=== PATIENT | female | born 1970 | race Caucasian/White ===

== ENCOUNTER 2020-12-29 07:39 | Outpatient (REF) | payer BC, SELFPAY ==
[2020-12-29 08:50] LABS: Alanine Aminotransferase 24 U/L (0-31); Albumin Level 4.2 g/dL (3.5-5.0); Alkaline Phosphatase 92 U/L (39-117); Anion Gap 13 (12-20); Aspartate Amino Transferase 20 U/L (5-31); Bilirubin Total 0.7 mg/dL (0.0-1.0); Blood Urea Nitrogen 10 mg/dL (9-16); Calcium 9.5 mg/dL (8.4-10.2); Carbon Dioxide 25 mmol/L (22-29); Chloride 104 mmol/L (96-108); Cholesterol 151 mg/dL; Estimated Glomerular Filt Rate 59; Glucose Random 82 mg/dL (60-115); HDL Cholesterol 42 mg/dL; LDL Cholesterol Calculated 97 mg/dl; Potassium 4.6 mmol/L (3.3-5.1); Sodium 137 mmol/L (135-145); Total Protein 7.6 g/dL (6.5-8.0); Triglycerides 61 mg/dL
[2020-12-29 09:14] LABS: Free T4 (Free Thyroxine) 1.21 ng/dL (0.71-1.85); Thyroid Stimulating Hormone 0.14 uIU/mL (0.32-4.0)
== END 2020-12-29 07:40 | disposition home or self-care (01) ==
LOC: HO.LAB 07:39
PROVIDERS: PCP Internal Medicine; Visit Provider Internal Medicine
DX: Z00.00 Encounter for general adult medical examination without abnormal findings (principal); E03.9 Hypothyroidism, unspecified
CPT/HCPCS: 36415; 80053; 80061; 84439; 84443

== ENCOUNTER 2024-01-07 07:42 | Outpatient (REF) | payer BC, SELFPAY ==
[2024-01-07 07:52] LABS: MANUAL DIFF FLAG NO
[2024-01-07 08:06] LABS: Basophils Absolute Auto 0.1 X10*3/uL (0.0-0.2); Basophils Percent Auto 0.8 % (0-2); Eosinophils Absolute Auto 0.4 X10*3/uL (0.0-0.4); Eosinophils Percent Auto 5.9 % (0-4); Hematocrit 41.6 % (37.0-47.0); Hemoglobin 14.1 g/dl (12.0-16.0); Imm Gran Abs Auto 0.01 X10*3/uL (0.00-0.03); Imm Gran Pct Auto 0.2 % (0.0-0.4); Lymphocytes Absolute Auto 2.3 X10*3/uL (1.2-4.9); Lymphocytes Percent Auto 38.3 % (20-40); Mean Corpuscular HGB Conc 33.9 g/dl (31.0-35.0); Mean Corpuscular Hemoglobin 30.3 pg (27.0-33.0); Mean Corpuscular Volume 89.3 fL (80.0-98.0); Mean Platelet Volume 9.4 fL (9.4-12.3); Monocytes Absolute Auto 0.5 X10*3/uL (0.1-1.2); Monocytes Percent Auto 7.9 % (2-11); Neutrophils Absolute Auto 2.8 x10*3/uL (2.0-8.3); Neutrophils Percent Auto 46.9 % (45-73); Platelet Count 207 X10*3/uL (160-400); Red Blood Count 4.66 X10*6/uL (4.20-5.50); Red Cell Distribution Width 12.2 % (11.0-16.0)
[2024-01-07 08:50] LABS: Alanine Aminotransferase 27 U/L (0-31); Albumin Level 3.8 g/dL (3.5-5.0); Alkaline Phosphatase 126 U/L (39-117); Anion Gap 11 (12-20); Aspartate Amino Transferase 23 U/L (5-31); Bilirubin Total 0.4 mg/dL (0.0-1.0); Blood Urea Nitrogen 15 mg/dL (9-16); Calcium 9.2 mg/dL (8.4-10.2); Carbon Dioxide 23 mmol/L (22-29); Chloride 110 mmol/L (96-108); Estimated Glomerular Filt Rate > 60; Glucose Random 99 mg/dL (60-115); HDL Cholesterol 47 mg/dL (>40); Potassium 4.2 mmol/L (3.3-5.1); Sodium 140 mmol/L (135-145); Total Protein 7.1 g/dL (6.5-8.0)
[2024-01-07 09:06] LABS: Free T4 (Free Thyroxine) 1.22 ng/dL (0.71-1.85); Thyroid Stimulating Hormone < 0.01 uIU/mL (0.32-4.0)
== END 2024-01-07 07:43 | disposition home or self-care (01) ==
LOC: HO.LAB 07:42
PROVIDERS: PCP Internal Medicine; Visit Provider Physician Assistant
DX: E78.00 Pure hypercholesterolemia, unspecified (principal); E03.9 Hypothyroidism, unspecified
CPT/HCPCS: 36415; 80053; 83718; 84439; 84443; 85025

== ENCOUNTER 2024-05-24 11:00 | Outpatient (REF) | payer BC, SELFPAY ==
--- NOTE | ~2024-05-24 | XR_ITS ---
EXAMINATION: XR CHEST CLINICAL INFORMATION: Acute bronchitis COMPARISON: 07/24/2011 TECHNIQUE: 2 views of the chest were obtained. FINDINGS: No significant abnormality is noted involving the heart, lungs, mediastinum, bony thorax or soft tissues. XR/XR chest 2V IMPRESSION: Unremarkable examination. Electronically signed by: Kenney Goldstein MD 05/24/2024 03:25 PM EDT
== END 2024-05-24 11:01 | disposition home or self-care (01) ==
LOC: HO.XRAY 11:00
PROVIDERS: PCP Internal Medicine; Visit Provider Physician Assistant
DX: J20.8 Acute bronchitis due to other specified organisms (principal)
CPT/HCPCS: 71046

== ENCOUNTER 2025-04-04 11:34 | Outpatient (REF) | payer BC, SELFPAY ==
[2025-04-04 13:10] LABS: MANUAL DIFF FLAG NO
[2025-04-04 13:14] LABS: Hematocrit 41.7 % (37.0-47.0); Hemoglobin 14.2 g/dl (12.0-16.0); Imm Gran Abs Auto 0.05 X10*3/uL (0.00-0.03); Imm Gran Pct Auto 0.4 % (0.0-0.4); Lymphocytes Absolute Auto 1.1 X10*3/uL (1.2-4.9); Mean Corpuscular HGB Conc 34.1 g/dl (31.0-35.0); Mean Corpuscular Hemoglobin 30.1 pg (27.0-33.0); Mean Corpuscular Volume 88.5 fL (80.0-98.0); NRBC Abs Auto 0.000 X10*3/uL (0.0-0.012); NRBC Pct Auto 0.0 /100WBC (0.0-0.2); Platelet Count 201 X10*3/uL (160-400); Red Blood Count 4.71 X10*6/uL (4.20-5.50); White Blood Count 11.9 X10*3/uL (4.8-10.8)
[2025-04-04 14:36] LABS: Free T4 (Free Thyroxine) 1.44 ng/dL (0.71-1.85)
[2025-04-05 07:18] LABS: Lyme Abs Screen <0.90 index
[2025-04-05 07:29] LABS: Immunoglobulin A 313 mg/dL (47-310)
== END 2025-04-04 11:35 | disposition home or self-care (01) ==
LOC: HO.MANLDS 11:34
PROVIDERS: Visit Provider Physician Assistant
DX: L28.2 Other prurigo (principal)
CPT/HCPCS: 36415; 82784; 82785; 84439; 84443; 85025; 85652; 86140; 86617; 86618; 86666; 86757; 87070; 87205

== ENCOUNTER 2025-05-24 10:45 | Outpatient (REF) | payer BC, SELFPAY ==
[2025-05-24 13:49] LABS: Appearance Urine Clear; Glucose Urine UA Negative (Negative); PH 6.0 (5.0-9.0); Specific Gravity - Urine 1.015 (1.005-1.025)
== END 2025-05-24 10:46 | disposition home or self-care (01) ==
LOC: HO.MANLNP 10:45
PROVIDERS: Visit Provider Physician Assistant
DX: N39.0 Urinary tract infection, site not specified (principal)
CPT/HCPCS: 81003

== ENCOUNTER 2025-05-25 10:32 | Outpatient (REF) | payer BC, SELFPAY ==
[2025-05-25 10:53] LABS: MANUAL DIFF FLAG NO
[2025-05-25 12:01] LABS: Hematocrit 44.9 % (37.0-47.0); Hemoglobin 15.2 g/dl (12.0-16.0); Imm Gran Abs Auto 0.05 X10*3/uL (0.00-0.03); Imm Gran Pct Auto 0.8 % (0.0-0.4); Lymphocytes Absolute Auto 2.2 X10*3/uL (1.2-4.9); Mean Corpuscular HGB Conc 33.9 g/dl (31.0-35.0); Mean Corpuscular Hemoglobin 29.9 pg (27.0-33.0); Mean Corpuscular Volume 88.2 fL (80.0-98.0); NRBC Abs Auto 0.000 X10*3/uL (0.0-0.012); NRBC Pct Auto 0.0 /100WBC (0.0-0.2); Platelet Count 198 X10*3/uL (160-400); Red Blood Count 5.09 X10*6/uL (4.20-5.50); White Blood Count 6.4 X10*3/uL (4.8-10.8)
[2025-05-25 12:12] LABS: Appearance Urine Clear; Glucose Urine UA Negative (Negative); PH 5.5 (5.0-9.0); Specific Gravity - Urine 1.020 (1.005-1.025); UMIC TRIGGER UA YES
[2025-05-25 12:22] LABS: Iron 95 mcg/dL (30-160); Percent Iron Saturation 34 % (15-50); Total Iron Binding Capacity 283 mcg/dL (228-428); Unsaturated Iron Binding 188 ug/dL
[2025-05-25 12:47] LABS: Ferritin 151 ng/mL (10-250); Free T4 (Free Thyroxine) 1.19 ng/dL (0.71-1.85); Thyroid Stimulating Hormone 0.02 uIU/mL (0.32-4.0)
[2025-05-25 12:52] LABS: Folate 12.0 ng/mL (> or = 4.0); Vitamin B12 1210 pg/mL (200-900)
== END 2025-05-25 10:33 | disposition home or self-care (01) ==
LOC: HO.LAB 10:32
PROVIDERS: PCP Internal Medicine; Visit Provider Physician Assistant
DX: R53.83 Other fatigue (principal); E03.9 Hypothyroidism, unspecified; N39.0 Urinary tract infection, site not specified; Z13.1 Encounter for screening for diabetes mellitus; Z13.0 Encounter for screening for diseases of the blood and blood-forming organs and certain disorders involving the immune mechanism; Z13.29 Encounter for screening for other suspected endocrine disorder
CPT/HCPCS: 36415; 81001; 82306; 82607; 82728; 82746; 83036; 83540; 84439; 84443; 84445; 84481; 85025; 86376

== ENCOUNTER 2025-05-30 11:23 | Outpatient (REF) | payer BC, SELFPAY ==
--- NOTE | ~2025-05-30 | XR_ITS ---
EXAMINATION: XR CHEST CLINICAL INFORMATION: ATYPICAL CHEST PAIN, Other chest pain COMPARISON: 05/24/2024. TECHNIQUE: 2 views of the chest were obtained. FINDINGS: The cardiac, hilar, and mediastinal contours are normal. The lungs are clear bilaterally. There is no pneumothorax or pleural effusion. There is no focal osseous or soft tissue abnormality. XR/XR chest 2V IMPRESSION: Normal chest. Electronically signed by: Jake Esquivel MD 05/30/2025 12:05 PM EDT
== END 2025-05-30 11:24 | disposition home or self-care (01) ==
LOC: HO.XRAY 11:23
PROVIDERS: PCP Internal Medicine; Visit Provider Physician Assistant
DX: R07.89 Other chest pain (principal)
CPT/HCPCS: 71046

== ENCOUNTER → 2025-05-30 11:27 | Outpatient (BNV) | payer BC, SELFPAY | PROVIDERS: PCP Internal Medicine; Visit Provider Radiology Diagnostic Radiology | DX: R07.89 Other chest pain (principal) | CPT/HCPCS: 71046 ==

== ENCOUNTER → 2025-06-28 08:02 | Outpatient (REF) | payer BC, SELFPAY ==
--- NOTE | 2025-06-28 08:04 | CA_ITS ---
Transthoracic Echocardiogram Patient (Last, First, Middle): Marleen Hardy F Gender: F Date of : 1970 Age: 55 Procedure Date: 06/28/2025 Procedure Type: Transthoracic Echocardiogram Location: OP Height: 162.56 cm Weight: 84.82 kg BSA: 1.90 m2 Heart Rate: 79 bpm Porcelain Turner: BRUNO Referring MD: Kathy HOYT Mucking Machine Operator: Rafael Chaudhary MD Symptoms: CHEST PAIN R07.89 Study Quality: Adequate w contrast ECG Rhythm: Sinus Conclusions: - 1. Normal LV ejection fraction of 60-65% with grade 1 diastolic dysfunction 2. Calcific mitral valve changes noted with normal cardiac valvular Dopplers 3. Mildly dilated ascending aorta 3.7 cm 4. No gross pericardial effusion Findings Procedure Information Contrast agent, definity, is being given per protocol without apparent complications. Left Ventricle Normal left ventricular size, thickness, and systolic function. The visually estimated ejection fraction is between 60-65%. Spectral Doppler is indicative of an impaired relaxation filling pattern. E/E prime ratio is <8, consistent with normal filling pressures. Evidence suggests grade I (mild) diastolic dysfunction. Right Ventricle Normal right ventricular cavity size and systolic function. Atria The left atrium is normal in size. There is no evidence of interatrial shunt. The right atrium is normal in size. Aortic Valve Normal aortic valve structure and function. There is no aortic valve stenosis. There is no aortic valve regurgitation. Mitral Valve There is mild anterior mitral leaflet thickening. There is mild mitral annular calcification. There is trace mitral valve regurgitation. There is no mitral valve stenosis. Pulmonic Valve The pulmonic valve is likely normal. Tricuspid Valve Normal tricuspid valve structure. There is trace tricuspid valve regurgitation. The right ventricular systolic pressure is normal. The right ventricular systolic pressure is 13 mmHg. Normal right atrial pressure. There is no evidence of pulmonary hypertension. Great Vessels The pulmonary artery was not well visualized. There is mild dilatation of the ascending aorta measuring 3.70 cm. Venous The inferior vena cava is normal in size and collapses greater than 50% with inspiration. Pericardium/Pleural There is no evidence of pericardial effusion. Prior Study Comparison No prior study available for comparison. Measurements 2D Linear Measurements IVSd: 1.07 0.6-0.9/0.6-1.0 cm LVIDd: 4.38 3.9-5.3/4.2-5.9 cm LVIDd Index: 2.31 2.4-3.2/2.2-3.1 cm/m2 LVIDs: 3.06 2.0-3.6 cm LVPWd: 0.94 0.7-1.1 cm LA Diam: 3.40 2.7-3.8/3.0-4.0 cm LAIDs Index: 1.79 1.5-2.3 cm/m2 LV Mass: 183.33 67-162/88-224 g LV Mass Index: 96.49 43-95/49-115 g/m2 LVOT Diam: 2.00 3.0+(-)1.3 cm 2D Systolic Function EF 4C: 60.70 >55% EF 2C: 61.90 >55% EF BiP: 61.60 >55% Mitral Valve MV Pk E: 0.51 MV PK A: 0.75 MV Decel Time: 199.00 E/A: 0.70 E'Lateral: 6.42 E'Medial: 5.44 E/E' Med: 9.40 E/E' Lat: 8.00 PHT: 58.00 MVA PHT: 3.79 Decel Stanley: 2.59 Aortic Valve AoV Pk Chente: 1.01 AoV Pk Grad: 4.00 LAILA: 3.29 LVOT LVOT Pk Chente: 1.00 LVOT Mn Chente: 0.75 LVOT VTI: 0.20 LVOT Pk Grad: 4.00 LVOT Mn Grad: 3.00 LVOT Diam: 2.00 LVOT Area: 3.14 Diastolic Function MV Pk E: 0.51 MV Pk A: 0.75 E/A: 0.70 E'Medial: 5.44 E/E' Med: 9.40 E' Laterial: 6.42 E/E' Lat: 8.00 Right Ventricle TAPSE (mm): 15.20 TVS' Chente: 9.25 Tricuspid Valve TR Pk Chente: 1.62 TR Pk Grad: 10.00 RA Press: 3.00 RVSP: 13.00 Great Vessels Aorta Sinus of Valsalva: 3.50 2.0-3.5 cm Ao Asc: 3.70 2.1-3.4 cm Pulmonary Veins Pulm Vein S/D 1.50 Pulmonary Valve PV Pk Chente: 0.76 Peak PV Grad: 2.00 Updated in Other Vendor System with Status of Final Rafael Chaudhary MD electronically signed on 06/28/2025 6:39:21 PM with status of Final
== END ==
LOC: HO.CARD 08:02
PROVIDERS: PCP Internal Medicine; Visit Provider Physician Assistant
DX: R07.89 Other chest pain (principal)
CPT/HCPCS: 93306; Q9957

== ENCOUNTER → 2025-06-28 08:04 | Outpatient (BNV) | payer BC, SELFPAY | PROVIDERS: PCP Internal Medicine; Visit Provider Internal Medicine Cardiovascular Disease | DX: I34.81 Nonrheumatic mitral (valve) annulus calcification (principal); I77.810 Thoracic aortic ectasia | CPT/HCPCS: 93306 ==

== ENCOUNTER 2025-07-24 07:27 | Outpatient (REF) | payer BC, SELFPAY ==
--- OUTSIDE RECORDS SUMMARY | 2025-07-24 07:31 | XMS_ITS | Data Portability ---
Author Organization [facility], Telehealth Patient Home Address [address] [place] [address] Assessment No assessment recorded. Plan of Treatment Reminders Order Date Submit Date Provider Last Modified By Organization Details Last Modified Time Details Appointments None recorded. Lab lipid panel, serum 2024 [facility], [address] [place] [address], [id number], 5 10:52:07 CMP, serum or plasma 2024 [facility], [address] [place] [address], [id number], 5 10:52:07 lipoprotei n (A), serum 2024 [facility], [address] [place] [address], [address], 5 10:52:07 ESR (erythrocy te sedimentat ion rate), blood 2024 025 [facility], [address] [place] [address], [address], 5 10:52:07 C-reactive protein, quantitati ve, serum or plasma 2024 025 [facility], [address] [place] [address], [address], 10:52:07 urinalysis complete, reflex culture 2024 [facility], [address] [place] [address], [id number], 12:19:25 urinalysis , dipstick 2024 [facility], [address], [address], [place], [address], 11:24:29 TSH + free T4, serum 2024 [facility], [address] [place] [address], [address], 11:32:31 T3, free, serum or plasma 2024 [facility], [address] [place] [address], [address], 11:32:31 thyroid peroxidase (tpo) Ab, serum 2024 [facility], [address] [place] [address], [address], 12:12:52 tsi (thyroid-s timulating immunoglob ulin), serum 2024 [facility], [address] [place] [address], [address], 11:32:31 vitamin D, 25-hydroxy , total, serum 2024 [facility], [address] [place] [address], [address], 11:32:31 vitamin B12 + folate, serum or blood 2024 [facility], [address] [place] [address], [address], 11:32:31 iron + TIBC + ferritin, serum 2024 [facility], [address] [place] [address], [address], 11:32:31 CBC w/ auto diff 2024 [facility], [address] [place] [address], [address], 11:32:31 hemoglobin A1c, QN, blood 2024 [facility], [address] [place] [address], [address], 11:32:31 ESR (erythrocy te sedimentat ion rate), blood 2024 [facility], [address] [place] [address], [address], 5 11:26:40 C-reactive protein, quantitati ve, serum or plasma 2024 [facility], [address] [place] [address], [address], 5 11:26:40 iga, quantitati ve, serum 2024 [facility], [address] [place] [address], [address], 5 11:26:40 lyme disease igg+igm, serum, reflex western blot 2024 [facility], [address] [place] [address], [address], 5 16:51:40 anaplasma phagocytop hilum + ehrlichia chaffeensi s DNA panel, blood 2024 [facility], [address] [place] [address], [address], 5 11:26:40 rickettsia rickettsii igg+igm Ab, serum 2024 [facility], [address] [place] [address], [address], 5 11:26:40 CBC w/ auto diff 2024 [facility], [address] [place] [address], [address], 5 13:01:10 IgE, quantitati ve, serum 2024 [facility], [address] [place] [address], [address], 5 11:26:03 TSH + free T4, serum 2024 [facility], [address] [place] [address], [address], 5 13:01:10 culture, skin - L busch 2024 [facility], [address] [place] [address], [address], 11:32:50 Referral None recorded. Procedures None recorded. Surgeries None recorded. Imaging None recorded. Medication Orders Zepbound 2.5 mg/0.5 mL subcutaneo us pen injector 2024 [id number], [address] [place], [address], 10:47:51 butalbital -acetamino phen-caffe ine 50 mg-325 mg-40 mg tablet 2024 [facility], [address] [place], [address], 05:02:10 amoxicilli n 875 mg tablet 2024 025 [facility], [address] [place], [address], 05:01:22 prednisone 10 mg tablet 2024 025 [id number], [address] [place], [address], 11:09:17 Bactrim DS 800 mg-160 mg tablet 2024 025 [facility], [address] [place], [address], 05:01:42 prednisone 10 mg tablet 2024 025 [facility], [address] [place], [address], 11:09:14 cephalexin 500 mg capsule 2024 025 [facility], [address] [place], [address], 13:09:53 Patient TargetsNo targets recorded. Patient InstructionsNo instructions recorded. Reason for Referral None Reported. Results Created Date Observation Date Name Description Value Unit Range Abnormal Flag Note LastModifiedBy Organization Detail LastModifiedTime 05/24/2005/24/2025 urina lysis , dipst ick Leukocytes Small Not Available [facility] [address] [place] [address] [address], [place], [address], 05/24/2025 11:21:30 05/24/2005/24/2025 urina lysis , dipst ick Nitrite positi ve Not Available [facility] [address], [place], [address], 05/24/2025 11:21:30 05/24/2005/24/2025 urina lysis , dipst ick Urobilinogen 8 Not Available [facility] [address], [place], [address], 05/24/2025 11:21:30 05/24/2005/24/2025 urina lysis , dipst ick Protein Negati ve Not Available [facility] [address], [place], [address], 05/24/2025 11:21:30 05/24/2005/24/2025 urina lysis , dipst ick pH 6.0 Not Available [address], [place], [address], 05/24/2025 11:21:30 05/24/2005/24/2025 urina lysis , dipst ick Blood Negati ve Not Available [address], [place], [address], 05/24/2025 11:21:30 05/24/2005/24/2025 urina lysis , dipst ick Specific Falcon 1.020 Not Available [address], [place], [address], 05/24/2025 11:21:30 05/24/2005/24/2025 urina lysis , dipst ick Ketone Small Not Available [address], [place], [address], 05/24/2025 11:21:30 05/24/2005/24/2025 urina lysis , dipst ick Bilirubin Negati ve Not Available [facility] [address], [place], [address], 05/24/2025 11:21:30 05/24/2005/24/2025 urina lysis , dipst ick Glucose Negati ve Not Available [facility] [address], [place], [address], 05/24/2025 11:21:30 05/24/2005/24/2025 urina lysis , dipst ick Appearance Clear Not Available [facility] [address], [place], [address], 05/24/2025 11:21:30 05/24/2005/24/2025 urina lysis , dipst ick Color Yellow Not Available [facility] [address], [place], [address], 05/24/2025 11:21:30 05/30/2005/30/2025 XR, chest , 2 view No observ ation record ed. [email or web address] [facility] (Medical Records) [address] [place], [address], 05/30/2025 14:45:08 06/28/2006/28/2025 US, echoc ardio gram No observ ation record ed. [email or web address] [facility] (Medical Records) [address] [place], [address], 06/30/2025 13:45:07 Result Notes None recorded. Problems Name Problem SNOMED Code Status Onset Date Resolution Date Notes Provider Name and Address Organization Details Recorded Time Migraine 39638839 Active 2017 Not Available [facility] 0 11:54:14 Hypothyroi dism 52047042 Active 2017 EVELINA LEDESMA [address] 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 Jorge Waldrop, DO [address] [place] [address], [address], [facility] 1 15:20:24 Hypertensi ve disorder 31617456 Active 2021 Jorge Waldrop, DO [address] [place] [address], [address], [facility] 2 16:27:14 Allergic rhinitis 21488529 Active 2021 Jorge Waldrop, DO [address] [place] [address], [address], [facility] 2 16:31:22 Hyperlipid emia 50731432 Active 2022 EVELINA LEDESMA [address] [place] [address], [address], [facility] 3 16:26:16 Cough 98159559 Active 2022 EVELINA LEDESMA [address] [place] [address], [address], [facility] 3 13:51:36 Pain in throat 771490523 Active 2022 EVELINA LEDESMA [address] [place] [address], [address], [facility] 3 13:51:48 Acute bronchitis with bronchospa sm 59985493 Active 2022 EVELINA LEDESMA [address] [place] [address], [address], [facility] 3 13:51:56 Acute bronchitis 89027689 Active 2023 EVELINA LEDESMA [address] [place] [address], [address], [place] [facility] 4 15:31:31 Cellulitis 404601221 Active 2023 EVELINA LEDESMA [address] [place] [address], [address], [facility] 4 15:18:20 Anxiety 13110614 Active 2024 EVELINA LEDESMA [address] [place] [address], [address], [facility] 5 10:30:45 Disturbanc e of consciousn ess 6441374 Active 2024 EVELINA LEDESMA [address] [place] [address], [address], [facility] 5 10:38:03 Sleep apnea 11151215 Active 2024 EVELINA LEDESMA [address] [place] [address], [address], [facility] 5 10:41:00 Obstructiv e sleep apnea syndrome 85835923 Active 2024 EVELINA LEDESMA [address] [place] [address], [address], [facility] 5 10:10:08 Fatigue 27412201 Active 2024 EVELINA LEDESMA [address] [place] [address], [address], [facility] 5 10:16:10 Acute contact dermatitis 881196829 Active 2024 EVELINA LEDESMA [address] [place] [address], [address], [facility] 5 11:05:29 Eruption 114938958 Active 2024 EVELINA LEDESMA [address] [place] [address], [address], [facility] 5 14:52:44 Pruritic rash 46880286 Active 2024 EVELINA LEDESMA [address] [place] [address], [address], [facility] 5 11:29:56 Arthropod bite wound 931203312 Active 2024 EVELINA LEDESMA [address] [place], [address], [facility] 5 11:21:53 Acute urinary tract infection 140386602 Active 2024 EVELINA LEDESMA [address] [place], [address], [facility] 5 11:08:59 Atypical chest pain 972211853 Active 2024 EVELINA LEDESMA [address] [place] [address], [address], [facility] 5 10:13:02 Mixed hyperlipid emia 219150981 Active 2024 EVELINA LEDESMA [address] [place] [address], [address], [facility] 5 10:44:51 Problem Notes None recorded. Procedures Surgical History Date Name Laterality Status Provider Name and Address Organization Details Recorded Time 9 Most Recent Mammogram completed [facility] 04/19/2019 08:37:54 8 Date of Last Pap Smear completed [facility] 04/19/2019 08:38:36 Imaging Results None recorded. Procedure Notes None recorded. Medical Equipment None Reported. Allergies Allergen ID Allergen Name Allergen Category Reaction Reaction Severity Criticality Documentation Date Start Date Code Code System Note Provider Name and Address Organization Details Recorded Time 4288 Product containin g beta adrenergi c receptor antagonis t (product) medicatio n Not available Not available Not available 09/11/2020 37154 009 SNOMED Jorge Waldrop DO [address] [place], [address], [facility] 2 15:41:29 9374 Bactrim medicatio n Not available Not available Not available 05/24/2025 33688 9 RxNorm EVELINA LEDESMA [address] [place] [address], [address], [facility] 11:08:31 Medications Name Sig Start Date Stop Date Status Note LastModified by Organization Details LastModified Time fluoxetine 40 mg capsule TAKE 1 CAPSULE BY MOUTH EVERY DAY 10/05 completed Not Available Not Available Not Available amoxicillin 500 mg capsule TAKE 1 CAPSULE BY MOUTH 3 TIMES A DAY UNTIL FINISHED 01/21 completed Not Available Not Available Not Available nystatin 100,000 unit/mL oral suspension Take 5 mL 4 times a day by oral route for 7 days. 10/22 completed Not Available Not Available Not Available prednisone 10 mg tablet TAKE 4 TABS X 2 DAYS, THEN 3 TABS X 2 DAYS, 2 TABS X 2 DAYS, 1 TAB X 2 DAYS 05/24 completed Not Available Not Available Not Available doxycycline hyclate 100 mg capsule 09/12 completed Not Available Not Available Not Available clindamycin HCl 300 mg capsule TAKE 1 CAPSULE BY MOUTH 4 TIMES A DAY UNTIL FINISHED 01/21 completed Not Available Not Available Not Available atorvastati n 10 mg tablet Take 1 tablet every day by oral route for 90 days. 2024 active Not Available Not Available Not Avai lable azithromyci n 250 mg tablet TAKE 2 TABLETS BY MOUTH TODAY, THEN TAKE 1 TABLET DAILY FOR 4 DAYS DIRECTED 10/05 completed Not Available Not Available Not Available benzonatate 200 mg capsule TAKE 1 CAPSULE BY MOUTH THREE TIMES A DAY NEEDED FOR 14 DAYS 10/05 completed Not Available Not Available Not Available sumatriptan 100 mg tablet 1 TABLET BY MOUTH DAILY:MAY REPEAT DOSE ONCE IN 2 HOURS 05/09 completed Not Available Not Available Not Available prednisone 20 mg tablet take 3 tabs x 2 daystake 2 tabs x 2 daystake 1 tab x 2 days 10/11 completed Not Available Not Available Not Available propranolol ER 60 mg capsule,24 hr,extended release TAKE 1 CAPSULE BY MOUTH EVERY DAY 2024 active Not Available Not Available Not Avai lable acetaminoph en 300 mg-codeine 30 mg tablet 07/02 completed Not Available Not Available Not Available peg-electro lyte solution 420 gram oral solution 01/21 completed Not Available Not Available Not Available butalbital- acetaminoph en-caffeine 50 mg-325 mg-40 mg tablet Take 1 tablet 3 times a day by oral route as needed for 7 days. 07/24 completed Not Available Not Available Not Available levothyroxi ne 100 mcg tablet TAKE 1 TABLET BY MOUTH EVERY DAY 10/11 completed Not Available Not Available Not Available amoxicillin 875 mg tablet Take 1 tablet every 12 hours by oral route for 7 days. 06/07 completed Not Available Not Available Not Available magnesium oxide 400 mg (241.3 mg magnesium) tablet TAKE 1 TABLET BY MOUTH EVERY DAY active Not Available Not Available No t Available amlodipine 10 mg tablet TAKE 1 TABLET BY MOUTH EVERY DAY 10/22 completed Not Available Not Available Not Available cephalexin 500 mg capsule TAKE 1 CAPSULE BY MOUTH EVERY 6 HOURS FOR 10 DAYS 04/05 completed Not Available Not Available Not Available fluoxetine 20 mg tablet 07/02 completed Not Available Not Available Not Available levothyroxi ne 125 mcg tablet TAKE 1 TABLET BY MOUTH EVERY DAY FOR 30 DAYS 05/09 completed Not Available Not Available Not Available megestrol 40 mg tablet 05/09 completed Not Available Not Available Not Available levofloxaci n 750 mg tablet Take 1 tablet every day by oral route for 7 days. 10/22 completed Not Available Not Available Not Available methylpredn isolone 4 mg tablets in a dose pack TAKE 6 TABLETS ON DAY 1 DIRECTED ON PACKAGE AND DECREASE BY 1 TAB EACH DAY FOR A TOTAL OF 6 DAYS 10/05 completed Not Available Not Available Not Available albuterol sulfate HFA 90 mcg/actuati on aerosol inhaler Inhale 2 puffs every 4 hours by inhalatio n route for 30 days. active Not Available Not Available No t Available megestrol 20 mg tablet TAKE 1 TABLET BY MOUTH 2 TIMES DAILY FOR 90 DAYS. 10/22 completed Not Available Not Available Not Available fluoxetine 20 mg capsule TAKE 1 CAPSULE BY MOUTH EVERY DAY 08/31 completed Not Available Not Available Not Available doxycycline hyclate 100 mg tablet Take 1 tablet twice a day by oral route for 7 days. 10/05 completed Not Available Not Available Not Available levothyroxi ne 112 mcg tablet TAKE 1 TABLET BY MOUTH EVERY DAY active Not Available Not Available No t Available Bactrim DS 800 mg-160 mg tablet Take 1 tablet every 12 hours by oral route for 7 days. 04/17 completed Not Available Not Available Not Available escitalopra m 10 mg tablet TAKE 1 TABLET BY MOUTH EVERY DAY DIRECTED 07/10 completed Not Available Not Available Not Available escitalopra m 5 mg tablet Take 1 tablet every day by oral route as directed for 30 days. 11/02 completed Not Available Not Available Not Available nitrofurant oin monohydrate /macrocryst als 100 mg capsule Take 1 capsule every 12 hours by oral route for 7 days. 06/13 completed Not Available Not Available Not Available chlorhexidi ne gluconate 0.12 % mouthwash RINSE WITH 10 ML BY MOUTH TWICE A DAY FOR 3 WEEKS 01/21 completed Not Available Not Available Not Available magnesium 01/21 completed Not Available Not Available Not Available Zyrtec 10 mg capsule Take by oral route. 04/19 completed Not Available Not Available Not Available Nuria-D 1 tablet once a day active Not Available Not Available No t Available riboflavin (vitamin B2) 400 mg tablet Take 1 tablet every day by oral route for 30 days. 07/10 completed Not Available Not Available Not Available Fluzone Quad (PF) 60 mcg (15 mcg x 4)/0.5 mL IM syringe [facility]ARMACY ADMINIST[facility] 01/21 completed Not Available Not Available Not Available Zepbound 2.5 mg/0.5 mL subcutaneou s pen injector INJECT 2.5 MG SUBCUTANE OUSLY WEEKLY 2024 active Not Available Not Available Not Avai lable Vitals Date Recorded Body height Provider Name an d Address Organization Details Last Updated DateTime 04/04/2025 163.83 cm [facility] 04/04/2025 11:00:56 Date Recorded Body height Body mass index (BMI) Body weight Heart rate Oxygen saturation Systolic And Diastolic Provider Name and Address Organization Details Last Updated DateTime 163.83 cm 32.6 kg/m2 21961.3 3 g 90 /min 98 % 138/80 mm[Hg] [facility] 5 11:03:09 Social History Question Answer Notes LastModified by Organizat ion Details LastModified Time Tobacco Smoking Status Never Smoker Not Available [email or web address] 06/19/2020 03:36:23 What Was The Date Of Your Most Recent Tobacco Screening? 04/04/2025 [email or web address] Information not available 04/04/2025 How Much Tobacco Do You Smoke? No [id number] Information not available 06/19/2020 How Many Years Have You Smoked Tobacco? 0 [id number] Information not available 06/19/2020 Sex: Female Functional Status Question Answer Note LastModified by Organizat ion Details LastModified Time Do you or have you ever used smokeless tobacco? Never used smokeless tobacco [id number] Information not available 06/19/2020 Do you or have you ever used e-cigarettes or vape? Never used electronic cigarettes [id number] Information not available 06/19/2020 Mental Status None recorded. Family History Relationship Description Onset Age of this Age Resolved Age Notes LastModified by Organization Details LastModified Time Mother Hypertensive disorder [email or web address] Not available 2018 12:05:12 Father Cerebrovascu lar accident 71 [email or web address] Not available 12:05:27 Medical History No medical history recorded. Gynecological History Statement/Question Response Date of Last Pap Smear 09/01/2017 Most Recent Mammogram 02/11/2019 Obstetrics History GPAL:G 0 P 0 0 0 0 Immunizations Vaccine Type Date Status Note Provider Nam e and Address Organization Details Recorded Time Influenza, split virus, quadrivalent, preservative 0 completed Jorge Waldrop, DO [address] [facility], [place], [address], [facility] 07/19/2020 20:26:27 COVID-19, mRNA, LNP-S, PF, 100 mcg/0.5mL dose or 50 mcg/0.25mL dose 1 completed Ashley bertrand [facility] 01/16/2021 11:05:09 COVID-19, mRNA, LNP-S, PF, 100 mcg/0.5mL dose or 50 mcg/0.25mL dose 1 completed Ashley bertrand, [facility] 01/16/2021 11:05:17 Past Encounters Encounter ID Performer Location Encounter Start Date Encounter Closed Date Diagnosis/Indication Diagnosis SNOMED-CT Code Diagnosis ICD10 Code Diagnosis IMO Codes Diagnosis Note [id number] Jorge Sarah Waldrop [facility] [address] [facility] [address] 07/02/2018 15:13:37 07/06/2018 14:17:07 Migraine 99384750 G43.909 Hypothyroidism 09561187 E03.9 Malaise and fatigue 2717 56917 R53.83 Body mass index 30+ - obesity 469884902 Z68.39 Depressive disorder 3548 9007 F32.89 will increase fluoxetine [id number] Jorge Waldrop [facility] [address] [facility] [address] 08/31/2018 11:39:00 08/31/2018 13:20:00 Fatigue 39535182 R53.83 Hypothyroidism 27873286 E03.9 stable Migraine 83462310 G43.90 9 Atypical chest pain 1025 89948 R07.89 [id number] Jorge Waldrop [facility] [address] [facility], [place] [address] 04/19/2019 15:15:40 04/19/2019 16:01:52 Adult health examination 213741858 Z00.00 Active or passive immunization 258014696 Z23 will get flu shot Depressive disorder 3548 9007 F32.9 Migraine 69051285 G43.90 9 Hypothyroidism 01853708 E03.9 Body mass index 30+ - obesity 948309392 Z68.31 healthy diet and exercise [id number] Jorge Waldrop [facility] [address] [facility], [place] [address] 09/12/2019 14:16:47 09/12/2019 15:27:07 Migraine 09455015 G43.909 Has gotten progressiv april more frequent (8-10x/mo) Temporoman dibular joint disorder 96833280 M26.609 Has been ongoing for a few months Will monitor for signs of trigem neuralgia Fatigue 70831430 R53.83 TSH good, H/H good Will try increase levo to 112 and reassess Hypercholesterolemia 136 35425 E78.00 LDL 208 HDL 55 Will try ator 10 mg and recheck Hypothyroidism 79654007 E03.9 Will increase and reassess [id number] Jorge Waldrop [facility] [address] [facility] [address],[place] [address] 10/11/2019 14:48:32 10/11/2019 16:06:05 Migraine 78905679 G43.909 IMPROVED WITH PRED ALREADY ON FLONASE DAILY will monitor for change Otalgia 14311163 H92.02 doesn't seem infected will monitor for change Snoring 58214210 R06.83 [id number] Jorge Waldrop [facility] [facility] [address] [facility] [address],[place] [facility] [place] [address] 10/19/2019 15:56:06 10/19/2019 16:23:54 Upper respiratory infection [id number] J06.9 just a viral infection advised to continue taking advil and tylenol as needed can use flonase OTC and mucinex OTC as well for nasal congestion , chest congestion , rhinorrhea [id number] Jorge Waldrop [facility] [address] [facility] [address] [address] 12/06/2019 10:27:51 12/06/2019 11:17:27 Hypercholesterolemia 19383160 E78.00 LDL 208 HDL 55 Will retry ator 10 mg and recheck in february Hypothyroidism 46754435 E03.9 Will reassess and will have her follow poss symotoms and rech lab in february e kira though her tsh is sl low will follow carefully and see her in february [id number] Jorge Waldrop [facility] [address] [facility] [address] [address] 03/07/2020 10:59:50 03/07/2020 12:03:08 Hypothyroidism 80898087 E03.9 TSH is low but feeling much better Would like to keep current dose and can recheck in 4-6 mo Depressive disorder 0952 5827 F32.9 Has been benjamin w/ menopause but overall good Hypercholesterolemia 136 40954 E78.00 LDL dropped to 116 w/ addition of ator 10mg Will stay with current dose for now and recheck Migraine 24314154 G43.90 9 Has had improvemen t with mag 9/mo and seems to be better than last mo Neuro got MRI in May - normal Recc B2 OTC - will try [id number] Jorge Waldrop [facility] [address] [facility],[place] [address] 09/11/2020 08:48:05 09/12/2020 08:10:22 Hypothyroidism 17291387 E03.9 TSH is low but feeling much better Would like to keep current dose and can recheck in 4-6 mo Hypercholesterolemia 136 76094 E78.00 LDL dropped to 116 w/ addition of atorv 10mg Will stay with current dose for now and recheck Migraine 31549010 G43.90 9 Has had improvemen t with magnesium and she stopped taking so i told her to stay on it 9/mo and seems to be better than last mo Neuro got MRI in May - normal Rec B2 but has not tolerated the propranolo l at all will have her Abnormal u terine bleeding [id number] 9100 N93.9 will set her to be seen and biopsied by global marketing specialist pathology is pending [id number] Jorge Waldrop [facility] [address] [facility],[place] [address] 01/21/2021 14:25:55 01/21/2021 15:34:02 Hypothyroidism 49193042 E03.9 TSH is low but feeling much better Would like to keep current dose and can recheck in 4-6 mo Migraine 18659286 G43.90 9 Has had improvemen t with magnesium and she stopped taking so i told her to stay on it 9/mo and seems to be better than last mo Neuro got MRI in May - normal Rec B2 but has not tolerated the propranolo l at all will have her Depressive disorder 7908 9007 F32.9 Has been benjamin w/ menopause but overall good Hypercholesterolemia 136 75552 E78.00 LDL dropped to 116 w/ addition of atorv 10mg Will stay with current dose for now and recheck Endometria l intraepithelial neoplasia 005793775 N85.02 will cont with global marketing specialist oncologist [id number] [facility] [address] [facility], [facility]e [facility] [place] [address] 07/15/2021 12:01:58 07/15/2021 14:00:48 Endometrial intraepithelial neoplasia 717410231 N85.02 will cont with global marketing specialist oncologist Hypothyroidism 67211251 E03.9 TSH is low but feeling much better we will monitor and she will update us Would like to keep current dose and can recheck in 4-6 mo Migraine 45977693 G43.90 9 Has had improvemen t with magnesium and she stopped taking so i told her to stay on it 9/mo and seems to be better than last mo Neuro got MRI in December - normal Recc B2 but has not tolerated the propranolo l at all will have her Blood pres sure above reference range 76604922 R03.0 she will keep an eye on it and report back [id number] Jorge Waldrop [facility] [address] [facility], ite [facility] [place] [address] 08/27/2021 11:46:35 08/28/2021 15:37:32 Dyspnea 559725286 R06.02 will fu with chest, start on medicaton for possible COVID related bronchitis or pna Cough 65429299 R05.1 fu XR r/o pna [id number] Jorge Waldrop [facility] [address] [facility] [address] 09/04/2021 09:26:05 09/06/2021 13:24:08 Dysuria 11804176 R30.0 will fu if no improvemen t Pyelonephritis 05517276 N12 will start on levaquin Cough 87390780 R05.1 waiting on chest XR results [id number] Jorge Waldrop [facility] [address] [facility] [address] 10/22/2021 15:20:20 10/22/2021 16:24:01 Active or passive immunization 231681977 Z23 utd Adult heal th examination 322695757 Z00.01 overall she is doing ok physically but her migraines are badwas given steroid to try to break migraine Migraine with aura 06439 06 G43.109 [id number] Jorge Waldrop [facility] [address] [facility] [address],[place] [address] 11/19/2021 15:16:14 11/19/2021 16:58:35 Hypertensive disorder 04441784 I10 she will cont the propranolo l at current dose Hypothyroidism 43358399 E03.9 TSH is low but feeling much better we will monitor and she will update us Would like to keep current dose and can recheck in 4-6 mo Migraine 42994092 G43.90 9 Has had improvemen t with her headaches over the past few days thinks she is getting used to the propranolo l 9/mo and seems to be better than last mo Neuro got MRI in December - normal Allergic rhinitis 650603 04 J30.9 she will obtain flonase as maybe some of her headaches may be rhinnitis [id number] Jorge Waldrop [facility] [address] [facility],[place] [address] 04/18/2022 10:30:29 04/22/2022 11:22:26 Migraine 26863901 G43.909 Has had improvemen t with her headaches over the past few days thinks she is getting used to the propranolo l 9/mo and seems to be better than last mo Neuro got MRI in May - normal Hypertensive disorder 38 039886 I10 she will cont the propranolo l at current dose [id number] [facility] [address] [facility],[place] [address] 06/19/2023 09:06:44 06/19/2023 14:19:19 Cough 57059828 R05.1 start cough med Pain in throat 109934431 R07.0 can take APAP and ibuprofen Acute bron chitis with bronchospasm 19250073 J20.8 will start on z luis antonio, medrol, benzonatat e [id number] Jorge Waldrop [facility] [address] [facility] [address],[place] [address] 05/23/2024 10:28:41 05/23/2024 16:21:15 Acute bronchitis 91812109 J20.8 start on pred taperagree d to pna to r/o, r/in pneumonia [id number] Jorge MartinesShelli Waldrop [facility] [address] [facility] [address],[place] [address] 06/14/2024 11:45:12 06/15/2024 08:22:00 Cellulitis 746304882 L03.211 recommende d starting doxycyclin e Hypothyroidism 80649301 E03.9 will set up with recheck thyroid level [id number] Jorge Waldrop [facility] [address] [facility] [address],[place] [address] 10/05/2024 10:07:00 10/05/2024 10:53:45 Anxiety 02050099 F41.1 will have her switch to lexapro Depressive disorder 3548 9007 F32.0 start low dose lexapro Body mass index 30+ - obesity 580435903 Z68.32 HTN, HLD, IFG, hx of sleep apnearecom mended starting on GLP-1 inhibitor Sleep apnea 19067622 G47 .33 will hold sleep [id number] Jorge Waldrop [facility] [address] [facility] [address],[place] [address] 11/02/2024 09:49:07 11/02/2024 13:32:59 Depressive disorder 26081753 F32.0 increase to 10 mgkeep the 5 mg on hand to use to increase dose if needed Hypothyroidism 97780596 E03.9 will set up with recheck thyroid level Screening for cardiovascular system disease 893812083 Z13.6 will set up with routine screening [id number] Jorge Waldrop [facility] [address] [facility] [address],[place] [facility] [place] [address] 12/12/2024 08:46:06 12/12/2024 10:32:26 Hypercholesterolemia 83750126 E78.00 getting bw Depressive disorder 3548 9007 F32.0 10 mg working great Obstructiv e sleep apnea syndrome 63674744 G47.33 67770 updated sleep study Fatigue 60894641 R53.83 6676896 new sleep study ordered, still needs to check thyroid levels Hypothyroidism 82498100 E03.9 recheck thyroid level Body mass index 30+ - obesity 638617574 Z68.32 623694 HTN, HLD, IFG, hx of sleep apneagetti ng updated info for appeal [id number] Jorge Waldrop [facility] [address] [place] [address],[place] [address] 03/20/2025 10:56:19 03/20/2025 11:14:36 Acute contact dermatitis 682142686 L25.9 364 will set up with steroid burst and abx [id number] Jorge Buchananunruly [facility] [address],[place] [address] 04/03/2025 14:09:10 04/03/2025 15:20:47 Eruption 456532686 R21 89545 Pruritic rash 17416246 L 29.89 1739709 712441 Jorge Buchananunruly [address],[place] [address] 04/04/2025 10:56:26 04/04/2025 11:30:44 Depression screening 970918361 Z13.31 negative Pruritic rash 99898531 L 28.2 525916 send out for bw and culture [id number] Jorge Waldrop [facility] [address],[place] [address] 05/24/2025 10:54:27 05/24/2025 15:54:29 Acute urinary tract infection 009270493 N39.0 127464 will set up with amox and send out urine Hypothyroidism 51786522 E03.9 recheck thyroid level Fatigue 20159562 R53.83 7998549 new sleep study ordered, still needs to check thyroid levels [id number] Jorge Waldrop [facility] [address],[place] [address] 07/10/2025 09:35:35 07/10/2025 15:48:32 Depression screening 114487558 Z13.31 negative Mixed hyperlipidemia 267 507990 E78.2 62634 will set up with bw first prior to initiation of medication or determinat ion to restart statin therapydid advise pt the risks of not taking the medication which she is aware of Obstructiv e sleep apnea syndrome 38662725 G47.33 51375 updated sleep study Migraine 05657829 G43.90 9 needs refill Health Concerns Section Related Observation LastModified by Organization Detai ls LastModified Time None Recorded Concern Status LastModified by Organization Details LastModified Time None Recorded Advance Directives Directive None Recorded Payers Insurance Date Sequence Insurance Name Policy Number Policy Ayala Covered Member ID Ayala Member ID Guarantor Name 04/18/2022 1 [place] [id number] Felix Wheatr [id number] Marleen McGeer 07/07/2025 1 [place] [id number] Marleen Gallegoeer [id number] Marleen McGeer 08/27/2021 1 [place] Marleen Gallegoeer [id number] Marleen McGeer 07/16/2021 1 [employer] Marleen Gallegoeer [id number] Marleen McGeer 07/15/2021 1 [place] [facility] (HMO) [id number] Marleen F McGeer [id number] Marleen McGeer 08/30/2021 1 [place] Marleen Gallegoeer [id number] Marleen McGeer 08/27/2021 1 [place] [id number] Felix Gallegoeer [id number] Marleen Gallegoeer Notes Date Note Type Note Provider Name a nd Address Organization Details Recorded Time 5 text/html ROS as noted in the HPI c/o rash, ?shingles she has a generalized rash, legs, arms, face, handsrash is itchy and papular in nature the patient reports that some of the areas are open for scratching the patient has been cleaning out her parents house and doing yard workthe patient has been exposed to several plants and bugs probable a contact dermatitis to some plant or bugwill set up with steroid taper and abx to prevent infection of open wounds EVELINA LEDESMA [address] [place], [address], [facility] 03/20/2025 11:14:04 5 text/html ROS as noted in the HPI The patient is participating in this appointment via telemedicine communication with a phone call (audio) only.The patient consents to use of these platforms in place of an in-person appointment due to either patient being acutely ill (being in office would put our staff and our other patients at risk) or unable to make an in-person appointment due to either lack of transporation, severe medical condition, immunocompromised, etc.The appointment took place over a phone call (audio) due to patient's inability to access or use an audio and visual platform. 03/24/25 APPT: rash, ?shingles she has a generalized rash, legs, arms, face, handsrash is itchy and papular in nature the patient reports that some of the areas are open for scratching the patient has been cleaning out her parents house and doing yard workthe patient has been exposed to several plants and bugs probable a contact dermatitis to some plant or bugwill set up with steroid taper and abx to prevent infection of open wounds 04/03/25: TELEHEALTH PT IN [facility] cleared up, stopped the abx sooner the course was written and finished pred taper, started getting the rash, mostly peripherally, legs, arm, face, nothing on torsopapular rash with some areas of vesicular patches could still be a reaction previously had when cleaning out the shed vs incomplete treatment due to termination of course sooner the recommended having her come in for appt tomorrow to look at it EVELINA LEDESMA [address] [facility], [place], [address], [facility] 04/03/2025 15:01:07 5 text/html ROS as noted in the HPI f/u rash per rt 03/24/25 APPT: rash, ?shingles she has a generalized rash, legs, arms, face, handsrash is itchy and papular in nature the patient reports that some of the areas are open for scratching the patient has been cleaning out her parents house and doing yard workthe patient has been exposed to several plants and bugs probable a contact dermatitis to some plant or bugwill set up with steroid taper and abx to prevent infection of open wounds 04/03/25: TELEHEALTH PT IN [facility] cleared up, stopped the abx sooner the course was written and finished pred taper, started getting the rash, mostly peripherally, legs, arm, face, nothing on torsopapular rash with some areas of vesicular patches could still be a reaction previously had when cleaning out the shed vs incomplete treatment due to termination of course sooner the recommended having her come in for appt tomorrow to look at it 04/04/25:will send out for lab work and skin culturespotty rash, no papules or vesiculesitching improved on the prednisone EVELINA LEDESMA [address] [facility], [place], [address], [facility] 04/04/2025 11:30:03 5 text/html c/o UTI acute UTI: the patient reports that she developed recent urinary symptoms over the past few days the patient reports that she is having burning urination, frequencydenies blood in the urine the patient didn't do well on bactrim the patient has pos nitrates and leuks the patient has been having on and off issues with nonspecific EVELINA LEDESMA [address] [facility], [place], [address], [facility] 05/24/2025 11:32:44 5 text/html ROS as noted in the HPI 1 mos f/u The patient is participating in this appointment via telemedicine communication with a phone call (audio) only.The patient consents to use of these platforms in place of an in-person appointment due to either patient being acutely ill (being in office would put our staff and our other patients at risk) or unable to make an in-person appointment due to either lack of transportation, severe medical condition, immunocompromised, etc.The appointment took place over a phone call (audio) due to patient's inability to access or use an audio and visual platform. the patient stopped her atorvastatin, propranolol, she didn't want to be on itrecommended patient be start back on the medication given her home readings the patient and I will recheck her levels, the patient would like to hold off restarting the atorvastatinthe patient will get me her cholesterol done this week sleep apnea, updated sleep study, resubmit the medication to [facility] and trial, she states she will pay for it whatever the cost is is going to restart her BP med now in 5 mos needs an updated echo to recheck the dilation otherwise she has been feeling great EVELINA LEDESMA [address] [place] [address], [place], [address], [facility] 07/10/2025 10:54:05 OBGyn Episode No OBEpisode recorded.
--- OUTSIDE RECORDS SUMMARY | 2025-07-24 07:31 | XMS_ITS | Encounter Summary ---
Author Organization [facility] Address [address] [place] [address] Care Team Providers Care Aircraft Riveter Name Role Phone Jorge Waldrop DO Primary Care Provider [phone] Encounter Details Date Type Department Care Team (Latest Contact Info) Description 06/23/2025 Lab Requisition [facility] - Main Lab [address] [place] [address] Jose Newton MD [address] [address] Encounter for screening for infections with a predominantly sexual mode of transmission Social History Tobacco Use Types Packs/Day Years Used Date Smoking Tobacco: Never Smokeless Tobacco: Never Comments No Sex and Gender Information Value Date Recorded Sex Assigned at Not on file Legal Sex Female 12:02 AM EST Gender Identity Not on file Sexual Orientation Not on file documented as of this encounter Plan of Treatment Not on file documented as of this encounter Procedures Procedure Name Priority Date/Time Associated Diagnosis Comments CHLAMYDIA TRACHOMATIS AND NEISSERIA GONORRHOEAE PCR Routine 06/23/2025 12:00 AM EST Encounter for screening for infections with a predominantly sexual mode of transmission documented in this encounter Results * Chlamydia trachomatis and Neisseria gonorrhoeae molecular study (06/23/2025 12:00 AM EST) Neisseria gonorrhoeae PCR Negative Negative LAB MOLECULAR DIAGNOSTICS METHOD 06/24/2025 12:[address] [facility] Chlamydia trachomatis PCR Negative Negative LAB MOLECULAR DIAGNOSTICS METHOD 06/24/2025 12:14 PM [facility] Swab Cervix uteri structure / Unknown Non-blood Collection / Unknown 06/23/2025 06/23/2025 2:16 PM EST us Jose Newton MD LAB MICROBIOLOGY - GENERAL ORD ERABLES Final Result [facility] [address] [place] [address], documented in this encounter Visit Diagnoses Diagnosis Encounter for screening for infections with a predominantly sexual mode of transmission documented in this encounter Care Teams Aircraft Riveter Relationship Specialty Start Date End Date Jorge Waldrop DO [address] [facility] [address] [place], [place] PCP - General Internal Medicine 01/17/21 documented as of this encounter
--- OUTSIDE RECORDS SUMMARY | 2025-07-24 07:31 | XMS_ITS | Clinical Summary ---
Author Organization [facility] Address [address] [place] [address] Phone Care Team Providers Care Brick Tender Name Role Phone Jorge Waldrop DO Primary Care Provider [phone] Encounters Date Type Department Care Team Description 06/26/[address] [facility] [address] [place] [address] Jose Newton MD Encounter for gynecological examination (general) (routine) without abnormal findings 06/23/[address] [facility] [address] [place] [address] Jose Newton MD Encounter for screening for infections with a predominantly sexual mode of transmission 06/15/2025 7:40 AM EDT - 06/15/2025 11:59 PM EDT [facility] [address] [address] Encounter for screening mammogram for malignant neoplasm of breast Discharge Disposition: Home or Self Care from Last 3 Months Surgical History Surgery Date Site/Laterality Comments HYSTEROSCOPY 10/03/2020 PROCEDURE: ME HYSTEROSCOPY BX ENDOMETRIUM&/POLYPC W/WO D&C KIDNEY STONE SURGERY PROCEDURE: ME NEPHROLITHOTOMY REMOVAL CALCULUS Medical History Medical History Date Comments Hyperlipidemia DX:Hyperlipidemi a Essential hypertension DX:Essent ial hypertension Hypothyroid DX:Hypothyroid Family History Medical History Relation Name Comments Melanoma Father Breast cancer Mother Relation Name Status Comments Father Mother Social History Tobacco Use Types Packs/Day Years Used Date Smoking Tobacco: Never Smokeless Tobacco: Never Comments No Sex and Gender Information Value Date Recorded Sex Assigned at Not on file Legal Sex Female 12:02 AM EST Gender Identity Not on file Sexual Orientation Not on file Obstetrics History Para Term AB IAB SAB Ectopic Multiple Livin g Live Births 3 Last Filed Vital Signs Vital Sign Reading Time Taken Comments Blood Pressure - - Pulse - - Temperature - - Respiratory Rate - - Oxygen Saturation - - Inhaled Oxygen Concentration - - Weight 81.6 kg (180 lb) 06/15/2025 7:45 AM EDT Height 162.6 cm (5' 4 ) 06/15/2025 7:45 AM EDT Body Mass Index 30.9 06/15/2025 7:45 AM EDT Plan of Treatment Health Maintenance Due Date Last Done Comments Colorectal Cancer Screening: Colonoscopy 1970 DTaP,Tdap,and Td Vaccines (1 - Tdap) 1989 Hepatitis B Vaccines (1 of 3 - 19+ 3-dose series) 1989 Pneumococcal Vaccine: 50+ Years (1 of 1 - PCV) 01/11/2020 Zoster Vaccines (1 of 2) 01/11/2020 Cholesterol Screening (Lipid Panel) 07/20/2022 HIV Screening 07/20/2022 Hepatitis C Screening 07/20/2022 Social Influencers of Health Screening 07/20/2022 Depression Screening 08/17/2024 COVID-19 Vaccine (3 - 2024- season) 2025 12/02/2020, 11/03/2020 Influenza Vaccine (#1) 2025 07/17/2020 Hypertension/CHF/CAD Annual BMP Blood Test 06/15/2025 Breast Cancer Screening 06/15/2027 06/15/20, 08/28/2023, 08/25/2022, Additional history exists Cervical Cancer Screening: HPV 06/23/2030 06/23/2025 RSV Immunization Adult Patients (1 - 1-dose 75+ series) 2045 HIB Vaccines Aged Out No longer eligi ble based on patient's age to complete this topic HPV Vaccines Aged Out No longer eligi ble based on patient's age to complete this topic Hepatitis A Vaccines Aged Out No long er eligible based on patient's age to complete this topic IPV Vaccines Aged Out No longer eligi ble based on patient's age to complete this topic MMR Vaccines Aged Out No longer eligi ble based on patient's age to complete this topic Meningococcal ACWY Vaccine Aged Out N o longer eligible based on patient's age to complete this topic Meningococcal B Vaccine Aged Out No l onger eligible based on patient's age to complete this topic RSV Immunization Patients Under 20 months Aged Out No longer eligible based on patient's age to complete this topic Varicella Vaccines Aged Out No longer eligible based on patient's age to complete this topic Procedures Procedure Name Priority Date/Time Associated Diagnosis Comments PAP SMEAR Routine 06/23/2025 12:00 AM EST Encounter for gynecological examination (general) (routine) without abnormal findings HPV WITH REFLEX GENOTYPE Routine 06/23/2025 12:00 AM EST Encounter for gynecological examination (general) (routine) without abnormal findings CHLAMYDIA TRACHOMATIS AND NEISSERIA GONORRHOEAE PCR Routine 06/23/2025 12:00 AM EST Encounter for screening for infections with a predominantly sexual mode of transmission MG MAMMO DIGITAL SCREENING W GOPAL BILAT Routine 06/15/2025 7:51 AM EDT Encounter for screening mammogram for malignant neoplasm of breast from Last 3 Months Results * HPV with reflex genotype (06/23/2025 12:00 AM EST) HPV Negative Negative LAB MICROBIOLOGY METHOD 06/26/2025 2:07 PM EST [facility] Brushing/Spatula Cervix uteri structure / Unknown 06/23/2025 06/26/2025 6:49 AM EST Jose Newton MD LAB MOLECULAR DIAGNOSTICS BENEDICTO SANCHEZ Final Result [facility] [address] [place] [address], * Chlamydia trachomatis and Neisseria gonorrhoeae molecular study (06/23/2025 12:00 AM EST) Neisseria gonorrhoeae PCR Negative Negative LAB MOLECULAR DIAGNOSTICS METHOD 06/24/2025 12:14 PM EST [facility] Chlamydia trachomatis PCR Negative Negative LAB MOLECULAR DIAGNOSTICS METHOD 06/24/2025 12:14 PM EST [facility] Swab Cervix uteri structure / Unknown Non-blood Collection / Unknown 06/23/2025 06/23/2025 2:16 PM EST us Jose Newton MD LAB MICROBIOLOGY - GENERAL ORD ERABLES Final Result [facility] [address] [place] [address], * Pap smear (06/23/2025 12:00 AM EST) Interpretation Negative for intraepithelial lesion or malignancy 06/27/2025 3:11 PM [facility] at 1511 EST General Categorization Negative 06/27/2025 3:11 PM [facility] Other Findings Atrophy 06/27/2025 3:11 PM [facility] Specimen Adequacy Satisfactory for evaluation 06/27/2025 3:11 PM [facility] Pap Methodology Liquid Based Pap Test 06/27/2025 3:11 PM [facility] Disclaimer The Pap test is a screening test which carries an inherent false negative rate. These test results should be correlated with the patient's clinical findings and history. This Pap test was processed using an automated screening system. Technical cytopathology services provided by [facility], at [address] [place] [address] (CLIA # [id number]/Bijal Goldstein MD, Cotton Baler.) 06/27/2025 3:11 PM [facility] Console Pap Interpretation Reported 06/27/2025 3:11 PM [facility] Brushing/Spatula Cervix uteri structure / Unknown 06/23/2025 06/26/2025 6:49 AM EST us Jose Newton MD LAB CYTOLOGY ORDERABLES Final Result [facility] [address] [place] [address], * MG Mammo Digital Screening w Gopal bilat (06/15/2025 7:51 AM EDT) Anatomical Region Laterality Modality Breast Bilateral Mammography 06/15/2025 8:09 AM EDT Impressions 06/15/2025 8:38 AM EDT Benign. BI-RADS CATEGORY: 1 - NEGATIVE RECOMMENDATION: Screening bilateral mammogram is recommended in 1 year. Mammo Location: [facility], [address] [place], [place], [address], . -------- FINAL REPORT -------- Dictated By: Sander Barrow Dictated Date: 06/15/2025 08:09 ET Assigned Physician: Sander Barrow Reviewed and Electronically Signed By: Sander Barrow Signed Date: 06/15/2025 08:38 ET Workstation ID: [id number] Transcribed By: Self Edit Transcribed Date: 06/15/2025 08:09 ET Narrative 06/15/2025 8:38 AM EDT CLINICAL: 55 years old, Female, routine annual exam. COMPARISON: 08/28/2023 and 08/25/2022. TECHNIQUE: Bilateral MLO and CC views were obtained digitally with 3-D mammogram (digital breast tomosynthesis). Computer-aided detection was utilized in evaluation of this exam (CAD). FINDINGS: No suspicious mass or architectural distortion. No suspicious calcification. There has been no significant change from prior exam(s). BREAST DENSITY: A - The breasts are almost entirely fatty. Procedure Note Sander Barrow MD - 06/15/2025 CLINICAL: 55 years old, Female, routine annual exam. COMPARISON: 08/28/2023 and 08/25/2022. TECHNIQUE: Bilateral MLO and CC views were obtained digitally with 3-Dmammogram (digital breast tomosynthesis). Computer-aided detection wasutilized in evaluation of this exam (CAD). FINDINGS: No suspicious mass or architectural distortion. No suspiciouscalcification. There has been no significant change from prior exam(s). BREAST DENSITY: A - The breasts are almost entirely fatty. IMPRESSION: Benign. BI-RADS CATEGORY: 1 - NEGATIVE RECOMMENDATION: Screening bilateral mammogram is recommended in 1 year. Mammo Location: [facility], [address] [place] [address], [address], . -------- FINAL REPORT -------- Dictated By: Sander Barrow Dictated Date: 06/15/2025 08:09 ET Assigned Physician: Sander Barrow Reviewed and Electronically Signed By: Sander Barrow Signed Date: 06/15/2025 08:38 ET Workstation ID: [id number] Transcribed By: Self Edit Transcribed Date: 06/15/2025 08:09 ET Jose Newton MD IMG BI PROCEDURES Final Result from Last 3 Months Insurance [facility] Care Teams Brick Tender Relationship Specialty Start Date End Date Jorge Waldrop DO [address] [facility] [address] [place], [place] PCP - General Internal Medicine 01/17/21
--- OUTSIDE RECORDS SUMMARY | 2025-07-24 07:31 | XMS_ITS | Continuity of Care Document ---
Author Organization [facility], [facility] Address [address] [facility] [place] [address] Assessment No assessment recorded. Plan of Treatment Reminders Order Date Submit Date Provider Last Modified By Organization Details Last Modified Time Details Appointments None recorded. Lab lipid panel, serum 2024 [facility], [address] [place] [address], [address], 5 10:52:07 CMP, serum or plasma 2024 025 [facility], [address] [place] [address], [address], 5 10:52:07 lipoprotei n (A), serum 2024 025 [facility], [address] [place] [address], [address], 5 10:52:07 ESR (erythrocy te sedimentat ion rate), blood 2024 025 [facility], [address] [place] [address], [address], 5 10:52:07 C-reactive protein, quantitati ve, serum or plasma 2024 025 [facility], [address] [place] [address], [address], 5 10:52:07 Referral None recorded. Procedures None recorded. Surgeries None recorded. Imaging None recorded. Medication Orders Zepbound 2.5 mg/0.5 mL subcutaneo us pen injector 2024 [id number], [address] [place], [address], 5 10:47:51 butalbital -acetamino phen-caffe ine 50 mg-325 mg-40 mg tablet 2024 025 [id number], [address] [place], [address], 5 05:02:10 Patient TargetsNo targets recorded. Patient InstructionsNo instructions recorded. Reason for Referral None Reported. Results Created Date Observation Date Name Description Value Unit Range Abnormal Flag Note LastModifiedBy Organization Detail LastModifiedTime 06/28/2006/28/2025 , [facility] ardio gram No observ ation record ed. [email or web address] [facility] (Medical Records) [address] [facility], [place], [address], 06/30/2025 13:45:07 Result Notes None recorded. 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 oJrge Waldrop DO [address] [place], [address], [facility] 1 15:20:24 Hypertensi ve disorder 83836353 Active 2021 Jorge Waldrop, DO [address] [place] [address], [address], [facility] 2 16:27:14 Allergic rhinitis 12414804 Active 2021 Jorge Waldrop, DO [address] [place] [address], [address], [facility] 2 16:31:22 Hyperlipid emia 30799938 Active 2022 EVELINA LEDESMA [address] [place] [address], [address], [facility] 3 16:26:16 Cough 10388821 Active 2022 EVELINA LEDESMA [address] [place] [address], [address], [facility] 3 13:51:36 Pain in throat 605452360 Active 2022 EVELINA LEDESMA [address] [place] [address], [address], [facility] 3 13:51:48 Acute bronchitis with bronchospa sm 89924295 Active 2022 EVELINA LEDESMA [address] [place] [address], [address], [facility] 3 13:51:56 Acute bronchitis 20500677 Active 2023 EVELINA LEDESMA [address] [place] [address], [address], [facility] 4 15:31:31 Cellulitis 315116783 Active 2023 EVELINA LEDESMA [address] [place] [address], [address], [facility] 4 15:18:20 Anxiety 82277899 Active 2024 EVELINA LEDESMA [address] [place] [address], [address], [facility] 5 10:30:45 Disturbanc e of consciousn ess 1427721 Active 2024 EVELINA LEDESMA [address] [place] [address], [address], [facility] 5 10:38:03 Sleep apnea 17986553 Active 2024 EVELINA LEDESMA [address] [place] [address], [address], [facility] 5 10:41:00 Obstructiv e sleep apnea syndrome 13319350 Active 2024 EVELINA LEDESMA [address] [place] [address], [address], [facility] 5 10:10:08 Fatigue 98970149 Active 2024 EVELINA LEDESMA [address] [place] [address], [address], [facility] 5 10:16:10 Acute contact dermatitis 572080209 Active 2024 EVELINA LEDESMA [address] [place] [address], [address], [facility] 5 11:05:29 Eruption 488045394 Active 2024 EVELINA LEDESMA [address] [place] [address], [address], [facility] 5 14:52:44 Pruritic rash 70455866 Active 2024 EVELINA LEDESMA [address] [place] [address], [address], [facility] 5 11:29:56 Arthropod bite wound 411155392 Active 2024 EVELINA LEDESMA [address] [place] [address], [address], [facility] 5 11:21:53 Acute urinary tract infection 517024689 Active 2024 EVELINA LEDESMA [address] [place], [address], [facility] 5 11:08:59 Atypical chest pain 811047321 Active 2024 EVELINA LEDESMA [address] [place], [address], [facility] 5 10:13:02 Mixed hyperlipid emia 016490974 Active 2024 EVELINA LEDESMA [address] [place], [address], [facility] 5 10:44:51 Problem Notes None recorded. Procedures Surgical History Date Name Laterality Status Provider Name and Address Organization Details Recorded Time 9 Most Recent Mammogram completed [facility] 04/19/2019 08:37:54 8 Date of Last Pap Smear completed [facility] 04/19/2019 08:38:36 Imaging Results None recorded. Procedure Notes None recorded. Medical Equipment None Reported. Allergies Allergen ID Allergen Name Allergen Category Reaction Reaction Severity Criticality Documentation Date Start Date Code Code System Note Provider Name and Address Organization Details Recorded Time 4288 Product containin g beta adrenergi c receptor antagonis t (product) medicatio n Not available Not available Not available 09/11/2020 72180 009 SNOMED Jorge BobbiShelli Chanelunruly, DO [address] [place], [address], [facility] 2 15:41:29 9374 Bactrim medicatio n Not available Not available Not available 05/24/2025 96294 9 RxNorm EVELINA LEDESMA [address] [place], [address], [facility] 5 11:08:31 Medications Name Sig Start Date Stop [...] Available Not Available Not Avai lable Vitals None Recorded Social History Question Answer Notes LastModified by Organizat ion Details LastModified Time Tobacco Smoking Status Never Smoker Not Available [facility] 06/19/2020 03:36:23 What Was The Date Of Your Most Recent Tobacco Screening? 04/04/2025 [email or web address] Information not available 04/04/2025 How Much Tobacco Do You Smoke? No [id number] Information not available 06/19/2020 How Many Years Have You Smoked Tobacco? 0 [id number] Information not available 06/19/2020 Sex: Female Functional Status Question Answer Note LastModified by Organizat ion Details LastModified Time Do you or have you ever used smokeless tobacco? Never used smokeless tobacco [id number] Information not available 06/19/2020 Do you or have you ever used e-cigarettes or vape? Never used electronic cigarettes [id number] Information not available 06/19/2020 Mental Status None recorded. Family History Relationship Description Onset Age of this Age Resolved Age Notes LastModified by Organization Details LastModified Time Mother Hypertensive disorder [email or web address] Not available 2018 12:05:12 Father Cerebrovascu lar accident 71 [email or web address] Not available 12:05:27 Medical History No medical history recorded. Gynecological History Statement/Question Response Date of Last Pap Smear 09/01/2017 Most Recent Mammogram 02/11/2019 Obstetrics History GPAL:G 0 P 0 0 0 0 Immunizations Vaccine Type Date Status Note Provider Nam charles and Address Organization Details Recorded Time Influenza, split virus, quadrivalent, preservative 0 completed Jorge Waldrop DO [address] [place] [address], [address], [facility] 07/19/2020 20:26:27 COVID-19, mRNA, LNP-S, PF, 100 mcg/0.5mL dose or 50 mcg/0.25mL dose 1 completed [facility] 01/16/2021 11:05:09 COVID-19, mRNA, LNP-S, PF, 100 mcg/0.5mL dose or 50 mcg/0.25mL dose 1 completed [place] [facility] 01/16/2021 11:05:17 Past Encounters Encounter ID Performer Location Encounter Start Date Encounter Closed Date Diagnosis/Indication Diagnosis SNOMED-CT Code Diagnosis ICD10 Code Diagnosis IMO Codes Diagnosis Note [id number] Jorge Waldrop DO [facility] [address] [facility] [address] 07/10/2025 09:35:35 07/10/2025 15:48:32 Depression screening 702444791 Z13.31 negative Mixed hyperlipidemia 267 505594 E78.2 42074 will set up with [facility]w first prior to initiation of medication or determinat ion to restart statin therapydid advise pt the risks of not taking the medication which she is aware of Obstructiv e sleep apnea syndrome 43545210 G47.33 57855 updated sleep study Migraine 49177237 G43.90 9 needs refill Health Concerns Section Related Observation LastModified by Organization Detai ls LastModified Time None Recorded Concern Status LastModified by Organization Details LastModified Time None Recorded Payers Encounter Date Sequence Insurance Name Policy Number Policy Ayala Covered Member ID Ayala Member ID Guarantor Name 07/10/2025 1 SHARRI (PPO) [id number] Marleen Arora [id number] Marleen Arora Notes Date Note Type Note Provider Name [...] dilation otherwise she has been feeling great SHANNA KATZ, EVELINA [address] [facility], [place], [address], [facility] 07/10/2025 10:54:05 OBGyn Episode No OBEpisode recorded.
--- OUTSIDE RECORDS SUMMARY | 2025-07-24 07:31 | XMS_ITS | Encounter Summary ---
Author Organization [facility] Address [address] [place] [address] Care Team Providers Care Product Safety Consultant Name Role Phone Jorge Waldrop DO Primary Care Provider [phone] Encounter Details Date Type Department Care Team (Latest Contact Info) Description 06/26/2025 Lab Requisition [facility] [address] [facility] [place] [address] Jose Newton MD [address] [facility] [address] [place] [address] Encounter for gynecological examination (general) (routine) without abnormal findings Social History Tobacco Use Types Packs/Day Years [...] Procedure Name Priority Date/Time Associated Diagnosis Comments HPV WITH REFLEX GENOTYPE Routine 06/23/2025 12:00 AM EST Encounter for gynecological examination (general) (routine) without abnormal findings PAP SMEAR Routine 06/23/2025 12:00 AM EST Encounter for gynecological examination (general) (routine) without abnormal findings documented in this encounter Results * HPV with reflex genotype (06/23/2025 12:00 AM EST) HPV Negative Negative LAB MICROBIOLOGY METHOD 06/26/2025 2:07 PM EST [facility] Brushing/Spatula Cervix uteri structure / Unknown 06/23/2025 06/26/2025 6:49 AM EST Jose Newton MD LAB MOLECULAR DIAGNOSTICS ORDDina SANCHEZ Final Result Performing Organization Address City/[facility]/ZIP Co de Phone Number [facility] [address] [place] [address], [place] [phone] * Pap smear (06/23/2025 12:00 AM EST) Interpretation Negative for intraepithelial lesion or malignancy 06/27/2025 3:11 PM EST [facility] at 1511 EST General Categorization Negative 06/27/2025 3:11 PM EST [facility] Other Findings Atrophy 06/27/2025 3:11 PM [facility] Specimen Adequacy Satisfactory for evaluation 06/27/2025 3:11 PM [facility] Pap Methodology Liquid Based Pap Test 06/27/2025 3:11 PM [facility] Disclaimer The Pap test is a screening test which carries an inherent false negative rate. These test results should be correlated with the patient's clinical findings and history. This Pap test was processed using an automated screening system. Technical cytopathology services provided by [facility], at [address] [place] [address] (CLIA # [id number]/Bijal Goldstein MD, Rod Welder.) 06/27/2025 3:11 PM [facility] Console Pap Interpretation Reported 06/27/2025 3:11 PM [facility] Brushing/Spatula Cervix uteri structure / Unknown 06/23/2025 06/26/2025 6:49 AM EST us Jose Newton MD LAB CYTOLOGY ORDERABLES Final Result [facility] [address] [place] [address], [place] [phone] documented in this encounter Visit Diagnoses Diagnosis Encounter for gynecological examination (general) (routine) without abnormal findings documented in this encounter Care Teams Product Safety Consultant Relationship Specialty Start Date End Date Jorge Waldrop DO [address] [facility] [address] [place], [place] PCP - General Internal Medicine 01/17/21 documented as of this encounter
[2025-07-24 08:38] LABS: Alanine Aminotransferase 36 U/L (0-31); Albumin Level 4.4 g/dL (3.5-5.0); Alkaline Phosphatase 142 U/L (39-117); Anion Gap 13 (12-20); Aspartate Amino Transferase 31 U/L (5-31); Blood Urea Nitrogen 15 mg/dL (9-16); Calcium 9.6 mg/dL (8.4-10.2); Carbon Dioxide 27 mmol/L (22-29); Chloride 106 mmol/L (96-108); Cholesterol 262 mg/dL (<200); Estimated Glomerular Filt Rate > 60; HDL Cholesterol 46 mg/dL (>40); Potassium 4.6 mmol/L (3.3-5.1); Sodium 141 mmol/L (135-145); Total Protein 7.7 g/dL (6.5-8.0); Triglycerides 103 mg/dL (<150)
[2025-07-24 09:13] LABS: Erythrocyte Sedimentation Rate 13 MM/HR (0-20)
== END 2025-07-24 07:28 | disposition home or self-care (01) ==
LOC: HO.LAB 07:27
PROVIDERS: PCP Internal Medicine; Visit Provider Physician Assistant
DX: E78.2 Mixed hyperlipidemia (principal)
CPT/HCPCS: 36415; 80053; 80061; 83695; 85652; 86140

== ENCOUNTER → 2025-07-27 08:08 | Outpatient (REF) | payer BC, SELFPAY ==
--- NOTE | 2025-07-27 | CA_ITS ---
Acquisition Time: 2025-07-27 08:22:30 Total Exercise Time: 00:06:00 Test Indications: Syncope Medications: ATROVASTATIN PROPRANOLOL LEVOTHYROXINE Protocol: NEFTALI Max HR: 162 BPM 98% of Pred: 165 BPM Max BP: 130/74 mmHG Max Work Load: 7.0 METS Exercise stress test with exercise 6mins of Neftali Protocol, achieving 93% MPHR, with reports of mild dizziness after stopping the treadmill, no chest pain, with isolated PACs, with normotensive response to exercise. Without any EKG changes meeting criteria for ischemia. In recovery, dizziness improved and pt feeling back to baseline. Test reviewed with Dr. Chaudhary. Referred By: Kathy Mcnamara Electronically Signed By: Prakash Olson
== END ==
LOC: HO.CARD 08:08
PROVIDERS: Visit Provider Physician Assistant
DX: R07.89 Other chest pain (principal)
CPT/HCPCS: 93017

== ENCOUNTER → 2025-07-27 08:22 | Outpatient (BNV) | payer BC, SELFPAY | DX: I49.1 Atrial premature depolarization (principal); R42 Dizziness and giddiness | CPT/HCPCS: 93016; 93018 ==